=== PATIENT | female | born 1980 | race Caucasian/White ===

== ENCOUNTER 2019-07-10 15:58 | Emergency (ER) | payer SELFPAY ==
[~2019-07-10] VITALS: Ht 160 cm; Wt 81.2 kg
[~2019-07-10 15:58] MED LIST: ACET500C5 PO
[2019-07-10 16:03] VITALS: Ht 160 cm; Wt 81.2 kg
[2019-07-10] MEDS ORDERED: ACETAMINOPHEN 325 MG TAB PO ONE (16:30)
[2019-07-10 19:17] VITALS: BP 133/81; PULSE 88; RESP 18
== END 2019-07-10 19:17 | disposition home or self-care (01) ==
LOC: FTE 15:58 → EDBD 15:58 → FTE 19:17
DX: M79.605 Pain in left leg (principal)
CPT/HCPCS: 73590; 93922